=== PATIENT | female | born 1990 | race African-American/Black ===

== ENCOUNTER 2017-08-02 19:25 | Emergency (ER) | payer OTHER ==
[~2017-08-02] VITALS: Ht 177.8 cm; Wt 138.3 kg
[~2017-08-02 19:25] MED LIST: ACETAMINOPHEN-1 EAC1 PO; ALBUTEROL2.5 MG/31 INH; IBUPROFEN 800800 M1 PO; NOHOMEMEDICATIONS; PREDNISONE 20 M20 MG PO; PROMETHAZINE D480 ML PO; ZPAK PO
[2017-08-02] MEDS ORDERED: IBUPROFEN 600600 M1 PO (21:04)
[2017-08-02 21:14] VITALS: BP 123/45
== END 2017-08-02 21:15 | disposition home or self-care (01) ==
LOC: ER 19:25
DX: L02.214 Cutaneous abscess of groin (principal); F17.210 Nicotine dependence, cigarettes, uncomplicated

== ENCOUNTER 2017-12-23 13:39 | Emergency (ER) | payer OTHER ==
[~2017-12-23] VITALS: Ht 165.1 cm; Wt 131.5 kg
[~2017-12-23 13:39] MED LIST changes: +IBUPROFEN 600600 M1 PO
[2017-12-23] MEDS ORDERED: NAPROSYN500 MG PO (14:15)
[2017-12-23] MEDS ORDERED: NORFLEX100 MG PO (14:15)
[2017-12-23 15:00] VITALS: BP 176/97
== END 2017-12-23 15:00 | disposition home or self-care (01) ==
LOC: ER 13:39
DX: M43.6 Torticollis (principal); R20.2 Paresthesia of skin

== ENCOUNTER 2018-07-23 11:25 | Emergency (ER) | payer OTHER ==
[~2018-07-23] VITALS: Ht 172.7 cm; Wt 142.9 kg
[~2018-07-23 11:25] MED LIST changes: +NAPROSYN500 MG PO; +NORFLEX100 MG PO; +VENTOLIN HFA 1818 GM INH
[2018-07-23] MEDS ORDERED: SINGULAIR 10 MG10 M1 PO (12:00)
[2018-07-23] MEDS ORDERED: FLUTICASONE PRO16 GM NASAL (12:00)
[2018-07-23] MEDS ORDERED: SYMBICORT160 MCG/4. INH (12:02)
[2018-07-23] MEDS ORDERED: NORFLEX100 MG PO (12:43)
[2018-07-23] MEDS ORDERED: NAPROSYN500 MG PO (12:43)
[2018-07-23 13:06] VITALS: BP 123/70
== END 2018-07-23 13:07 | disposition home or self-care (01) ==
LOC: ER 11:25
DX: S39.012A Strain of muscle, fascia and tendon of lower back, initial encounter (principal); J45.909 Unspecified asthma, uncomplicated; X50.9XXA Other and unspecified overexertion or strenuous movements or postures, initial encounter; Y93.89 Activity, other specified; Y92.89 Other specified places as the place of occurrence of the external cause; Y99.8 Other external cause status

== ENCOUNTER 2018-09-06 13:55 | Emergency (ER) | payer OTHER ==
[~2018-09-06] VITALS: Ht 172.7 cm; Wt 142.9 kg
[~2018-09-06 13:55] MED LIST changes: +FLUTICASONE PRO16 GM NASAL; +SINGULAIR 10 MG10 M1 PO; +SYMBICORT160 MCG/4. INH
[2018-09-06] MEDS ORDERED: PRENATAL LOW I1 EACH PO (14:21)
[2018-09-06 16:30] VITALS: BP 134/76
[2018-09-06] MEDS ORDERED: FLAGYL500 M1 PO (16:46)
== END 2018-09-06 17:14 | disposition home or self-care (01) ==
LOC: ER 13:55
DX: O20.0 Threatened abortion (principal); O23.591 Infection of other part of genital tract in pregnancy, first trimester; B96.89 Other specified bacterial agents as the cause of diseases classified elsewhere; O99.511 Diseases of the respiratory system complicating pregnancy, first trimester; J45.909 Unspecified asthma, uncomplicated; O99.331 Smoking (tobacco) complicating pregnancy, first trimester; F17.210 Nicotine dependence, cigarettes, uncomplicated; Z3A.01 Less than 8 weeks gestation of pregnancy

== ENCOUNTER 2018-09-08 09:09 | Emergency (ER) | payer OTHER ==
[~2018-09-08] VITALS: Ht 172.7 cm; Wt 158.8 kg
[~2018-09-08 09:09] MED LIST changes: +FLAGYL500 M1 PO; +PRENATAL LOW I1 EACH PO
[2018-09-08] MEDS ORDERED: PERCOCET 5-3251 EACH PO (11:04)
[2018-09-08] MEDS ORDERED: NAPROSYN500 MG PO (11:04)
[2018-09-08] MEDS ORDERED: SENNA-DOCUSATE1 EAC1 PO (11:04)
[2018-09-08 11:09] VITALS: BP 137/66
== END 2018-09-08 11:28 | disposition home or self-care (01) ==
LOC: ER 09:09
DX: O03.9 Complete or unspecified spontaneous abortion without complication (principal); O99.511 Diseases of the respiratory system complicating pregnancy, first trimester; O99.331 Smoking (tobacco) complicating pregnancy, first trimester; Z3A.01 Less than 8 weeks gestation of pregnancy

== ENCOUNTER 2019-07-12 20:38 | Emergency (ER) | payer OTHER ==
[~2019-07-12] VITALS: Ht 172.7 cm; Wt 155.6 kg
[~2019-07-12 20:38] MED LIST changes: +PERCOCET 5-3251 EACH PO; +SENNA-DOCUSATE1 EAC1 PO
[2019-07-12 21:13] LABS: URINE BLOOD 3+ (Negative); URINE CLARITY SL CLOUDY; URINE COLOR RED; URINE GLUCOSE-RANDOM* NEGATIVE (Negative); URINE KETONES NEGATIVE (Negative); URINE LEUKOCYTES-REFLEX NEGATIVE (Negative); URINE NITRITE-REFLEX NEGATIVE (Negative); URINE PROTEIN (DIPSTICK) 2+ (Negative); URINE SPECIFIC GRAVITY >= 1.030 (1.005-1.035); URINE UROBILINOGEN 0.2 E.U./dl (0.2-1.0)
[2019-07-12 21:14] LABS: ICTOTEST (BILI CONFIRMATORY) Negative (Negative); URINE BILIRUBIN NEGATIVE (Negative)
[2019-07-12] MEDS ORDERED: FLEXERIL PO (21:29)
[2019-07-12] MEDS ORDERED: MOBIC7.5 MG PO (21:29)
[2019-07-12 21:47] LABS: BACTERIA-REFLEX 1-9 Few /HPF (None Seen); CASTS None Seen /LPF (None Seen); CRYSTALS None Seen /LPF (None Seen); MUCUS 0-3 Light strn/LPF (None Seen); SQUAMOUS 0-3 Few /LPF (0-3); URINE RBC >20 Many /HPF (0-2); URINE WBC-REFLEX 0-5 Rare /HPF (0-5)
[2019-07-12 21:50] VITALS: BP 147/100
[2019-07-12 21:51] LABS: AMP/METHAMP Negative (Negative); BARBITURATES Negative (Negative); BENZODIAZEPINES Negative (Negative); COCAINE Negative (Negative); METHADONE Negative (Negative); OPIATES Negative (Negative); PCP Negative (Negative)
== END 2019-07-12 21:50 | disposition home or self-care (01) ==
LOC: ER 20:38
PROVIDERS: Physician Assistant
DX: M54.5 Low back pain (principal); E66.01 Morbid (severe) obesity due to excess calories; J45.909 Unspecified asthma, uncomplicated; F17.210 Nicotine dependence, cigarettes, uncomplicated; Z68.43 Body mass index [BMI] 50.0-59.9, adult

== ENCOUNTER 2020-09-05 16:52 | Emergency (ER) | payer OTHER ==
[~2020-09-05] VITALS: Ht 162.6 cm; Wt 154.2 kg
[~2020-09-05 16:52] MED LIST changes: +FLEXERIL PO; +MOBIC7.5 MG PO
[2020-09-05 17:07] LABS: URINE BILIRUBIN NEGATIVE (Negative); URINE BLOOD NEGATIVE (Negative); URINE CLARITY CLEAR; URINE COLOR YELLOW; URINE GLUCOSE-RANDOM* NEGATIVE (Negative); URINE KETONES TRACE (Negative); URINE LEUKOCYTES-REFLEX NEGATIVE (Negative); URINE NITRITE-REFLEX NEGATIVE (Negative); URINE PROTEIN (DIPSTICK) NEGATIVE (Negative); URINE SPECIFIC GRAVITY >= 1.030 (1.005-1.035)
[2020-09-05] MEDS ORDERED: PNV 29-1 TABLE1 EACH PO (17:17)
[2020-09-05 18:50] VITALS: BP 143/71
== END 2020-09-05 18:51 | disposition home or self-care (01) ==
LOC: ER 16:52
PROVIDERS: Nurse Practitioner Family
DX: O26.891 Other specified pregnancy related conditions, first trimester (principal); R10.30 Lower abdominal pain, unspecified; Z3A.01 Less than 8 weeks gestation of pregnancy; Z79.899 Other long term (current) drug therapy

== ENCOUNTER 2020-11-04 16:13 | Emergency (ER) | payer OTHER ==
[~2020-11-04] VITALS: Ht 172.7 cm; Wt 151.1 kg
[~2020-11-04 16:13] MED LIST changes: +PNV 29-1 TABLE1 EACH PO
[2020-11-04 16:20] VITALS: BP 134/81
[2020-11-04] MEDS ORDERED: AMOXICILLIN500 M1 PO (16:42)
== END 2020-11-04 16:52 | disposition home or self-care (01) ==
LOC: ER 16:13
DX: O99.512 Diseases of the respiratory system complicating pregnancy, second trimester (principal); J02.9 Acute pharyngitis, unspecified; R51.9 Headache, unspecified; J45.909 Unspecified asthma, uncomplicated; O99.332 Smoking (tobacco) complicating pregnancy, second trimester; F17.210 Nicotine dependence, cigarettes, uncomplicated; Z79.899 Other long term (current) drug therapy; Z3A.16 16 weeks gestation of pregnancy